=== PATIENT | male | born 1990 | race Caucasian/White ===

== ENCOUNTER 2025-02-12 01:25 | Emergency (ER) | payer BC ==
[~2025-02-12] VITALS: Ht 190.5 cm; Wt 108.9 kg
[~2025-02-12 01:25] MED LIST: DOCU100 PO; HYDACE5 PO; LISI20 PO; MUPI2TO TOP; NAPR220; OXYACE5T PO; RXCLIN PO
[2025-02-12 02:06] VITALS: BP 191/128
[2025-02-12] MEDS ORDERED: Ketorolac Tromethamine 30mg Vial IM ONE (02:15)
[2025-02-12] MEDS ORDERED: Percocet 5-3251 EACH PO (04:29)
== END 2025-02-12 04:40 | disposition home or self-care (01) ==
LOC: ER 01:25
DX: M25.572 Pain in left ankle and joints of left foot (principal); I10 Essential (primary) hypertension; F17.210 Nicotine dependence, cigarettes, uncomplicated
CPT/HCPCS: 73610; 93971; 96372; 99283-25; J1885